=== PATIENT | male | born 1965 | race Caucasian/White ===

== ENCOUNTER 2022-10-11 12:11 | Emergency (ER) | payer OTHER ==
[~2022-10-11] VITALS: Ht 185.4 cm; Wt 91.3 kg
[~2022-10-11 12:11] MED LIST: AMLODIPINE BES2.5 MG PO; EPIPEN 2-P0.3 MG/0.3 IM; LISINOPRIL10 MG PO; LOSARTAN-HCTZ1 EACH PO; METFORMIN HCL500 M1 PO; PREDNISONE20 MG PO
[2022-10-11] MEDS ORDERED: METFORMIN HCL1000 MG PO (16:30)
[2022-10-11] MEDS ORDERED: AMOX TR-K CLV1 EAC1 PO (16:30)
[2022-10-11] MEDS ORDERED: GLIPIZIDE ER10 MG PO (16:30)
[2022-10-11] MEDS ORDERED: NORVASC2.5 MG PO (16:30)
[2022-10-11 16:50] VITALS: BP 136/90
== END 2022-10-11 16:52 | disposition home or self-care (01) ==
LOC: ED 12:11
DX: E11.621 Type 2 diabetes mellitus with foot ulcer (principal); L97.519 Non-pressure chronic ulcer of other part of right foot with unspecified severity; L03.115 Cellulitis of right lower limb; E11.65 Type 2 diabetes mellitus with hyperglycemia; F15.10 Other stimulant abuse, uncomplicated; R45.851 Suicidal ideations; I10 Essential (primary) hypertension; Z88.8 Allergy status to other drugs, medicaments and biological substances; Z79.84 Long term (current) use of oral hypoglycemic drugs; Z79.899 Other long term (current) drug therapy
CPT/HCPCS: 36415; 73660; 80053; 84443; 85025; 99285-25; G0480